=== PATIENT | female | born 1960 | race Caucasian/White ===

== ENCOUNTER 2023-09-07 13:40 | Emergency (ER) | payer BC, OTHER ==
[~2023-09-07] VITALS: Ht 170.2 cm; Wt 85.0 kg
[2023-09-07] MEDS ORDERED: MAG355OR18 PO (15:28)
[2023-09-07] MEDS ORDERED: DICY20TA17 PO (15:28)
[2023-09-07] MEDS ORDERED: LIDO20SO16 PO (15:28)
[2023-09-07 16:02] VITALS: BP 150/77; PULSE 85; RESP 16; TEMP 98; O2SAT 97
== END 2023-09-07 16:03 | disposition home or self-care (01) ==
LOC: ER 13:41
DX: R07.81 Pleurodynia (principal); K21.9 Gastro-esophageal reflux disease without esophagitis; Z88.2 Allergy status to sulfonamides
CPT/HCPCS: 71046; 99283

== ENCOUNTER 2023-10-20 11:39 | Emergency (ER) | payer BC ==
[~2023-10-20] VITALS: Ht 170.2 cm; Wt 72.3 kg
[~2023-10-20 11:39] MED LIST: DICY20TA17 PO; LIDO20SO16 PO
[2023-10-20] MEDS ORDERED: CEPH500C2 PO (12:10)
[2023-10-20] MEDS: bacitracin 15gm ointment TP ONE (12:14)
[2023-10-20] MEDS: TETanus/Pertussis (Acell)/Diphther VAC/PF (Tdap-Adult) 0.5ml syringe IMVAC ONE (12:15)
[2023-10-20 12:24] VITALS: BP 130/69; PULSE 81; RESP 16; TEMP 98.5; O2SAT 99
== END 2023-10-20 12:26 | disposition home or self-care (01) ==
LOC: ER 11:40
DX: T63.311A Toxic effect of venom of black widow spider, accidental (unintentional), initial encounter (principal); Z88.2 Allergy status to sulfonamides; Z79.899 Other long term (current) drug therapy; Y92.89 Other specified places as the place of occurrence of the external cause
CPT/HCPCS: 90471; 90715; 99283